=== PATIENT | male | born 1965 | race Caucasian/White ===

== ENCOUNTER 2018-04-04 20:44 | Observation (INO) ==
[2018-04-04] MEDS ORDERED: ASPIRIN PO ONE (21:06)
[2018-04-04 22:04] LABS: ALB/GLOB RATIO 1.9; ALBUMIN 5.1 g/dL (3.5-5.0); CALCIUM 9.8 mg/dL (8.8-10.2); CREATININE 1.3 mg/dL (0.7-1.2); POTASSIUM 4.2 mmol/L (3.5-5.1); TOTAL BILIRUBIN 1.45 mg/dL (0.20-1.00); TOTAL PROTEIN 7.8 g/dL (6.3-8.3)
[2018-04-04 22:24] LABS: BASO# 0.02 X1000 (0.0-0.2); BASO% 0.2 % (0.0-0.8); EOS# 0.08 X1000 (0.0-0.7); EOS% 0.6 % (0.0-10.0); HEMATOCRIT 58.8 % (42.0-52.0); HEMOGLOBIN 19.6 g/dL (14.0-18.0); IMM GRAN# 0.05 X1000 (0.0-0.04); IMM GRAN% 0.4 % (0.0-0.5); LYMPH# 2.74 X1000 (1.2-3.4); MCH 27.9 PG (27-31); MCHC 33.3 g/dL (33-37); MCV 83.8 FL (81-99); MONO# 0.86 X1000 (0.11-0.59); MONO% 6.6 % (1.7-9.3); MPV 11.5 FL (7.4-10.4); NEUT# 9.28 X1000 (1.4-6.5); NEUT% 71.2 % (42.2-75.2); PLT 255 X1000 (130-400); RBC 7.02 XMIL (4.7-6.1); RDW 13.6 % (11.5-14.5); WBC 13.03 X1000 (4.8-10.8)
--- NOTE | 2018-04-04 22:26 | Diag Imaging Result Doc PS360 ---
CHEST-1 VIEW - 04/04/2018 INDICATION: sob COMPARISON: 04/02/2018 FINDINGS: The lungs are normally expanded and clear. Heart size and mediastinal contours are normal. No pneumothorax or pleural effusion. IMPRESSION: Negative exam. Electronically signed by Demetri Beard 04/04/2018 10:24 PM
[2018-04-04] MEDS ORDERED: ZYRTEC PO ONE (23:42)
[2018-04-04] MEDS ORDERED: MORPHINE IV ONE (23:46)
[2018-04-04] MEDS ORDERED: NITROGLYCERIN SL ONE (23:46)
[2018-04-04] MEDS ORDERED: ZOFRAN IV ONE (23:47)
[2018-04-05] MEDS ORDERED: ZOFRAN IV PRN (00:22)
[2018-04-05] MEDS ORDERED: LOVENOX 1 MG/KG SUBQ ONE (00:32)
[2018-04-05] MEDS ORDERED: LOVENOX SUBQ ONE (00:45)
[2018-04-05] MEDS ORDERED: NITROGLYCERIN TOP SCH (00:45)
[2018-04-05] MEDS ORDERED: NS 1,000 ML IV ONE (00:57)
[2018-04-05 03:14] LABS: CK INDEX 1.6 (0.0-2.5); CK-MB 3.87 ng/mL (0.0-5.0)
[2018-04-05 05:39] LABS: BASO# 0.02 X1000 (0.0-0.2); BASO% 0.2 % (0.0-0.8); EOS# 0.23 X1000 (0.0-0.7); EOS% 2.1 % (0.0-10.0); HEMATOCRIT 56.2 % (42.0-52.0); HEMOGLOBIN 18.7 g/dL (14.0-18.0); IMM GRAN# 0.05 X1000 (0.0-0.04); IMM GRAN% 0.5 % (0.0-0.5); LYMPH# 2.29 X1000 (1.2-3.4); LYMPH% 20.6 % (20.5-51.1); MCH 28.1 PG (27-31); MCHC 33.3 g/dL (33-37); MCV 84.4 FL (81-99); MONO% 8.1 % (1.7-9.3); NEUT# 7.61 X1000 (1.4-6.5); NEUT% 68.5 % (42.2-75.2); PLT 200 X1000 (130-400); RBC 6.66 XMIL (4.7-6.1); RDW 13.6 % (11.5-14.5)
[2018-04-05 05:46] LABS: INR 0.98; PROTIME 13.8 Seconds (11.0-16.0)
[2018-04-05 06:04] LABS: AGAP 15; BUN 16 mg/dL (8-22); CALCIUM 9.2 mg/dL (8.8-10.2); CHLORIDE 101 mmol/L (98-107); COSMO 281; CREATININE 1.1 mg/dL (0.7-1.2); ESTIMATED GFR > 60; GLUCOSE 110 mg/dL (70-104); POTASSIUM 3.7 mmol/L (3.5-5.1); SODIUM 140 mmol/L (136-145); TCO2 24 mmol/L (25-35)
--- NOTE | 2018-04-05 07:53 | EKG Report ---
Test Performed on : 04/04/2018 8:53:15 PM Test Reason : cp Blood Pressure : / mmHG Vent. Rate : 092 BPM Atrial Rate : 092 BPM P-R Int : 136 ms QRS Dur : 096 ms QT Int : 372 ms P-R-T Axes : 054 -21 038 degrees QTc Int : 460 ms Sinus rhythm. with premature atrial complexes. with aberrant conduction. Incomplete right bundle branch block Borderline ECG When compared with ECG of 02-APR-2018 00:00, (Unconfirmed) aberrant conduction. is now present Unconfirmed Result
[2018-04-05] MEDS ORDERED: NORVASC PO SCH (09:00)
[2018-04-05] MEDS ORDERED: HYDROCHLOROTHIAZIDE PO SCH (09:00)
[2018-04-05] MEDS ORDERED: LOFIBRA PO SCH (09:00)
[2018-04-05] MEDS ORDERED: ASPIRIN PO SCH (09:00)
[2018-04-05] MEDS ORDERED: DIOVAN PO SCH (09:00)
--- NOTE | 2018-04-05 09:11 | EKG Report ---
Test Performed on : 04/05/2018 08:31:29 AM Test Reason : chest pain Blood Pressure : / mmHG Vent. Rate : 078 BPM Atrial Rate : 078 BPM P-R Int : 138 ms QRS Dur : 100 ms QT Int : 382 ms P-R-T Axes : 046 -20 041 degrees QTc Int : 435 ms Normal sinus rhythm. Normal ECG When compared with ECG of 04-APR-2018 20:53, (Unconfirmed) aberrant conduction. is no longer present Confirmed by Lou BUSH, Frank Wilson ([id number]) on 04/05/2018 3:26:42 PM
--- NOTE | 2018-04-05 10:01 | HISTORY AND PHYSICAL ---
PRIMARY CARE PROVIDER: DR. Corbin Montaño. CHIEF COMPLAINT: Chest pain. HISTORY OF PRESENT ILLNESS: A 53-year-old, male, who has been seen at [facility] [place] three- days-ago for chest pain. He states that he has had chest pain on-and-off for three days. It is a left-sided dull ache that radiates up into his left neck. He also has an associated mid sternal burning. At some points, he has dry cough and associated shortness of breath and diaphoresis. Also felt as if he has had palpitations at times. He has a history of hypertension, hyperlipidemia, borderline diabetes type 2 from what the patient tells me. He is also on testosterone replacement. Laboratory data was obtained in the emergency room which did show the patient to have polycythemia with a hemoglobin and hematocrit of 19.6 and 58.8. His CK and troponin were negative. Creatinine mildly elevated at 1.3. He has a strong family history as well as all risk factors associated with coronary artery disease. He will be admitted inpatient for further evaluation and treatment. PAST MEDICAL HISTORY: 1. Hypertension. 2. Hyperlipidemia. 3. Borderline diabetes. 4. Hypogonadism. 5. Diverticulosis. PREVIOUS SURGICAL HISTORY: 1. Colon resection secondary to diverticulosis. 2. Appendectomy. 3. Tonsillectomy. SOCIAL HISTORY: Lives at home with his . 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 He dips chewing tobacco. He is a nonsmoker. He has never smoked. Occasional alcohol. He is not a daily drinker. Denies illicit drugs. FAMILY HISTORY: Father and grandfather both had coronary artery disease. Father had first myocardial infarction at age 36. ALLERGIES: Penicillin causes anaphylaxis. HOME MEDICATIONS: 1. Atorvastatin 40 mg p.o. daily. 2. Fenofibrate 160 mg p.o. daily 3. Tadalafil 5 mg p.o. at bedtime. 4. Testosterone supinate 200 mg subcutaneous as directed. 5. Valsartan/hydrochlorothiazide 320/25 one p.o. daily. 6. Amlodipine 5 mg p.o. daily. REVIEW OF SYSTEMS: A 14 point review of systems conducted with the patient. Pertinent positives listed above in the HPI. All other systems reviewed. He was also positive for diarrhea over the last day. All other systems were found to be negative. PHYSICAL EXAMINATION: VITAL SIGNS: Temperature 98.1 degrees Fahrenheit, pulse 74, respirations 14, blood pressure 140/92. Oxygen saturation 94% on room air. GENERAL: A pleasant 53-year-old, obese male lying on the ER stretcher. Answers all questions appropriately. He is alert and oriented x3. is at bedside, very supportive. He is in no acute distress. He is not having chest pain at this time. HEENT: Head: Atraumatic, normocephalic. Eyes: Pupils are equal, round and reactive to light. Extraocular eye movements intact. Sclerae anicteric. Conjunctivae pink. Oral mucosa is moist. NECK: Supple. No JVD. No thyromegaly. Trachea is midline. No cervical lymphadenopathy. CARDIAC: S1, S2 appreciated. No murmur, gallop, or rub. LUNGS: Clear to auscultation bilaterally. No rhonchi, wheeze or rales. Symmetric rise and fall of respirations. ABDOMEN: Protuberant, soft, nondistended. Tenderness above umbilicus. Patient has a ventral abdominal hernia where his old midline incision was from the colon resection, which is tender to palpation. Bowel sounds present all four quadrants, normoactive. No pulsatile mass. No organomegaly. EXTREMITIES: No clubbing, cyanosis or edema. Two-plus pedal pulses bilaterally. GENITOURINARY: No bladder distention. The patient voids otherwise. NEUROLOGIC: No focal motor deficits, otherwise nonfocal examination. IMAGING: Chest x-ray no infiltrates. No pulmonary edema. LABORATORY DATA: WBC 13.03, hemoglobin 19.6, hematocrit 58.8, platelet count 255,000. D-dimer less than 0.27. BUN 15, creatinine 1.3, glucose 106. Total bilirubin 1.45. AST 37. ALT 46. IMPRESSION AND PLAN: 1. Unstable angina. We will consult Dr. Amado Chacko. I believe he had an appointment with him this . I will not order a stress test or echocardiogram. We will defer to Cardiology. The patient will likely need a stress test or a heart catheterization. Defer that decision. We will give 1 mg/kg of Lovenox. The patient will not be given nitroglycerin as he takes tadalafil, which will be held. Increased dose of atorvastatin from 40 to 80 mg daily. Aspirin 325 mg p.o. daily. Trend cardiac enzymes. Check direct lipid profile. 2. Hyperlipidemia. As noted, increase atorvastatin dose. Check lipid profile. 3. Hypertension. Continue home medications. 4. Polycythemia. Likely related to his testosterone replacement. Patient may need to be phlebotomized as his blood at this point seems to be too viscus. We will give normal saline at 100 mL/h. 5. Acute kidney injury versus chronic renal insufficiency. The patient's creatinine is mildly elevated as noted. We will give fluid rehydration and recheck laboratory data. 6. Hypogonadism. At this point, we will hold testosterone. As noted above, we will hold tadalafil. . Further recommendations per the patient's clinical course. Dictated by BEATRIZ Toro for Lynette Parks MD cc: MD Corbin Bojorquez MD Harley C. Bailey, CRNP [place]le P. Akinsoto, MD Above plan of care was discussed with patient and [employer]. This patient in my opinion has a high probability for CAD and his symptoms are suggestive of an ARABELLA and a cath will be more cost effective. He also has a high risk job as a cone trucker and needs to be conclusively ruled out for significant disease. His use of testosterone does not help matters. He also uses Tadalafil which may hint at vascular disease. ANNA
[2018-04-05 10:12] LABS: CK INDEX 1.5 (0.0-2.5); CK-MB 3.06 ng/mL (0.0-5.0)
--- NOTE | 2018-04-05 10:34 | PROGRESS NOTE ---
DATE: 04/05/2018 SUBJECTIVE: The patient reports his chest pain is completely gone. It was radiating to the left arm. It was located in the left thoracic area and substernal area, too. OBJECTIVE: Vital Signs: Temperature 97.7 degrees, heart rate 76, respiratory rate 20, blood pressure 136/91, O2 saturation 97% on room air. General Examination: This is a 53-year-old male lying in bed, in no acute distress. HEENT: Head is normocephalic and atraumatic. Neck: No carotid bruits. No lymphadenopathy. No thyromegaly. Cardiovascular: S1 and S2 heard. No murmurs, gallops, or rubs. Regular rate and rhythm. Respiratory: Clear bilaterally to auscultation. No work of breathing or using accessory muscles. Abdomen: Soft. Nontender to palpation. Bowel sounds present. No organomegaly. Extremities: No clubbing, cyanosis, or edema. Peripheral pulses present in both legs. Neurological: Patient alert and oriented x3. Moves 4 extremities. LABORATORY DATA: White count 11.1, hemoglobin 18.7, hematocrit 56.2. D-dimer was normal. BMP normal. We have checked troponins 3 times and those were completely normal. ASSESSMENT AND PLAN: 1. Chest pain. The patient apparently had an appointment already scheduled for this , 04/07/2018, with Dr. Chacko. At this point, considering that he is nothing by mouth, I will go ahead and do a Lexiscan stress/rest study. Cardiology has been consulted. Will follow recommendations. 2. Hyperlipidemia. We have checked a lipid profile and triglycerides, cholesterol and HDL are within normal limits. Will continue with the same management. 3. Hypertension. Will continue with home medications. 4. Polycythemia, likely related to his testosterone replacement. At this point, he will receive some intravenous fluids. 5. Acute kidney injury. Actually the kidney function was mildly elevated, but today is back to normal with intravenous fluids. Will continue to monitor. 6. Hypogonadism. Will hold testosterone and will hold tadalafil as well. DISPOSITION: Depending upon the results of the tests. cc: Roberth Amato MD
[2018-04-05] MEDS ORDERED: NITROGLYCERIN SL PRN (10:43)
--- NOTE | 2018-04-05 12:48 | EKG Report ---
Test Performed on : 04/05/2018 10:50:57 AM Test Reason : chest pain Blood Pressure : / mmHG Vent. Rate : 078 BPM Atrial Rate : 078 BPM P-R Int : 132 ms QRS Dur : 102 ms QT Int : 380 ms P-R-T Axes : 035 -25 031 degrees QTc Int : 433 ms Normal sinus rhythm. Incomplete right bundle branch block Borderline ECG When compared with ECG of 05-APR-2018 08:31, (Unconfirmed) Incomplete right bundle branch block is now present Confirmed by Lou BUSH, Frank Wilson ([id number]) on 04/05/2018 3:27:13 PM
--- NOTE | 2018-04-05 13:19 | CARDIOLOGY CONSULTATION ---
DATE: 04/05/2018 CHIEF COMPLAINT ON PRESENTATION: Chest pain. HISTORY OF PRESENT ILLNESS: Mr. Angel is a 53-year-old gentleman with a history of hypertension, glucose intolerance, hyperlipidemia, and early family history of coronary disease, who presented with complaints of chest discomfort that has occurred 2 to 3 times a day for the last 3 to 4 days. These would generally be nonexertional, would feel like a burning and tightness discomfort, be associated with shortness of breath, located in the left lower chest, and occasionally radiate up into his neck. These would last anywhere from 5 to 10 minutes or so. He was evaluated in the emergency room at [place] and had an unremarkable evaluation at that time. PAST MEDICAL HISTORY: Significant for: 1. Hypertension. 2. Hyperlipidemia. 3. Glucose intolerance. 4. Hypogonadism. 5. Diverticulosis. FAMILY HISTORY: Father apparently had coronary disease at an early age, possibly less than 40. SOCIAL HISTORY: He is a nonsmoker, but uses smokeless tobacco. He is . 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 Rare alcohol. REVIEW OF SYSTEMS: A 10-system review of systems is negative except for those things mentioned in the HPI. PHYSICAL EXAMINATION: Vital signs: He is afebrile. Heart rate is 76. Blood pressure is 136/91. General: He is in no acute distress. HEENT: Oropharynx is moist. Poor dentition. Eye examination shows pink conjunctivae, white sclerae. Neck: Examination shows no obvious thyromegaly or thyroid tenderness. Cardiovascular: He sounds to be in a regular rate and rhythm. He has no obvious murmurs. He has no S3. He has no lower extremity edema. Chest: Exam is clear bilaterally. He has no increased work of breathing. Abdomen: Soft, nontender, nondistended. He has no obvious organomegaly. Skin Exam: Warm and dry throughout without any rashes. Neurological: Moving all extremities well. He has no lateralizing deficits. Psychiatric: He is alert, oriented, and pleasant. Normal mood and affect. PERTINENT DATA: Chest x-ray is unremarkable for any abnormal findings. Electrocardiogram yesterday at 2052 showed sinus rhythm with a PVC. No acute ischemic changes or sign of injury. EKG this morning at 8:31 showed sinus rhythm, no acute ischemic changes or sign of injury pattern. White count 11.1, hematocrit 56, platelet count 200,000. Sodium 140, potassium 3.7, BUN 16, creatinine 1.1. Cardiac enzymes are negative. TSH was 5.16. ASSESSMENT: Mr. Angel is a 53-year-old gentleman who presented with chest pain. PLAN: The patient has somewhat typical and atypical findings. Will review his rest imaging. We may benefit from an early invasive strategy in this patient since his AMANDA risk score is 3. Will review his rest imaging and proceed from there. The patient has already had an aspirin. Will proceed from there. cc: Trevin Hinojosa MD
[2018-04-05] MEDS ORDERED: HEPARIN 1000 UNITS/NS 2,000 UNIT/1,000 ML IV.SOLN ONE (14:04)
[2018-04-05 14:34] VITALS: BP 174/84
[2018-04-05] MEDS ORDERED: VERSED ONE (14:52)
[2018-04-05] MEDS ORDERED: DILAUDID ONE (14:52)
[2018-04-05] MEDS ORDERED: NS 1,000 ML ONE (14:53)
[2018-04-05] MEDS ORDERED: CLAVE TWINSITE 32 IN 11959 ONE (14:53)
--- NOTE | 2018-04-05 15:15 | Diag Imaging Result Document ---
PROCEDURE NAME: MYOCARDIAL PERFU SCAN, REST - 04/05/2018 SUMMARY: The patient was administered 15.6 mCi of technetium 99-m sestamibi after which resting cardiac images were obtained. SPECT images were reconstructed in the short, horizontal, and vertical axis. Review of these images demonstrated a moderate to severe defect involving the inferior wall. CONCLUSIONS: Abnormal resting sestamibi study demonstrating moderate to severe defect involving the entire inferior wall. Clinical correlation recommended. cc: MD Roberth Bojorquez MD
--- NOTE | 2018-04-05 16:44 | CARDIAC CATH REPORT ---
PROCEDURE NAME: - INDICATION: Patient with unstable angina. Rest perfusion imaging study showing inferior wall defect. PROCEDURES PERFORMED: 1. Left heart catheterization. 2. Selective coronary geography. 3. Left ventriculogram. PROCEDURE IN DETAIL: Mr. Angel was brought to the catheterization laboratory in fasting state. Informed consent was obtained. Prepped in usual fashion. He was anesthetized over the right radial artery and a 5-Georgian sheath was placed via true Seldinger technique. Radial cocktail was administered. Catheters were introduced. Hemodynamic measurements made of the ascending thoracic aorta. Coronary angiography was performed in multiple views using JL3 5, JR4 diagnostic catheters. Left heart catheterization was performed using the JR4 as was the left ventriculogram. At conclusion of procedure, all sheaths and catheters removed. TR band was left inflated at 9 mL of air with good capillary refill, good hemostasis, 70 mL of IV contrast, 5-10 mL of blood loss. No apparent complications. FINDINGS: 1. Left main appears normal and originates from the left coronary cusp. 2. Left anterior descending and circumflex vessels originate from the left main. The circumflex appears normal throughout its course and is a very large vessel. The left anterior descending appears normal with the exception of mild aneurysmal segment in the proximal portion. 3. Right coronary originates from the right coronary cusp. It appears normal throughout its course. 4. Aortic blood pressure 112/71 with a mean of 90. Left ventricular pressure is 131/1 with an LVEDP of 10. 5. Left ventriculogram demonstrated an ejection fraction of 65% with normal wall motion. ASSESSMENT: Mr. Angel is a 53-year-old gentleman with multiple risk factors for coronary disease who presented with chest pain symptoms concerning for angina. PLAN: He has no flow-limiting lesions on his coronary angiography. His chest pain seems to be of a noncardiac etiology. At this point, I would continue with aggressive primary risk factor modification. From my standpoint, he may be discharged home when stable from a hospitalist standpoint. cc: Trevin Hinojosa MD
[2018-04-05 18:26] LABS: CK INDEX 1.4 (0.0-2.5); CK-MB 3.11 ng/mL (0.0-5.0)
--- NOTE | 2018-04-05 18:45 | DISCHARGE SUMMARY ---
ADMISSION DATE: 04/04/2018 DISCHARGE DATE: 04/05/2018 DISCHARGE DIAGNOSES: 1. Chest pain, resolved. 2. Acute coronary syndrome ruled out. 3. Hyperlipidemia. 4. Hypertension. 5. Polycythemia. 6. Acute kidney injury, resolved. 7. Hypogonadism. CONSULTATIONS: Dr. Trevin Hinojosa from Cardiology. PROCEDURES: 1. X-ray done on admission showed negative exam. 2. Myocardial perfusion scan nuclear medicine showed abnormal resting sestamibi study demonstrating moderate to severe defect involving the entire inferior wall. 3. Cardiac catheterization showed no flow-limiting lesions on his coronary angiography. Again, his chest pain seems to be noncardiac etiology. HOSPITAL COURSE: This is a 53-year-old male who has been seen in [facility] three days ago for chest pain. He came to the emergency department again complaining of the same problem. He was basically admitted to the hospital for chest pain workup. So far, echo and cardiac cath showed no major lesions. Patient reports no more chest pain. The patient was cleared by cardiology. He is going to be discharged in stable condition. DISCHARGE PHYSICAL EXAMINATION: Vital signs: Temperature 98.2 degrees, heart rate 81, respiratory rate 19, blood pressure 136/91, O2 saturation 97% on room air. General: This a 53- year-old male, lying in bed, in no acute distress. HEENT: Head is normocephalic, atraumatic. Neck: No JVD noted. No carotid bruits. No lymphadenopathy. No thyromegaly. Cardiovascular: S1, S2 heard. No murmurs, gallops, or rubs. Regular rate and rhythm. Respiratory: Clear bilaterally to auscultation. No work of breathing or using accessory muscles. Abdomen: Soft. Nontender to palpation. Bowel sounds present. No organomegaly. Extremities: No clubbing, cyanosis, or edema. Peripheral pulses present in both legs. Neurological: Patient is alert and oriented x3. Moves 4 extremities. DISCHARGE DISPOSITION: Home to self-care. FOLLOW UP: Follow up with his primary care physician in a week. LIST OF MEDICATION: We have not made any changes to his current treatment. We are going to add to his current treatment aspirin 81 mg 1 tablet p.o. daily. cc: MD ANNA Chappell
[2018-04-05] MEDS ORDERED: LIPITOR PO SCH (21:00)
[2018-04-06] MEDS ORDERED: ASPIRIN PO SCH (09:00)
== END 2018-04-05 18:42 | disposition home or self-care (01) | DRG 287 ==
LOC: ED 20:44 → INTOOBSV 20:45 → SUATTDRO 20:45 → 3N 20:45 → 3S 04-05 15:48
PROVIDERS: ATTEND Internal Medicine
CPT/HCPCS: 71010; 71045; 78451; 80048; 80053; 80061; 82550; 82553; 82948; 83721; 83880; 84443; 84484; 85025; 85379; 85610; 93005; 93010; 93458; 96374; 96375; 99285; A9270; A9500; J1170; J1644; J1650; J2250; J2270; J2405; J7030; Q9967; XXXXX